=== PATIENT | female | born 1945 | race Caucasian/White ===

== ENCOUNTER 2020-06-24 08:01 | Outpatient (CLI) | payer MEDICARE, SELFPAY ==
--- NOTE | ~2020-06-24 | MM_ITS ---
EXAMINATION: MM screening [facility] BI w radha HISTORY: Screening mammogram TECHNIQUE: Craniocaudal and mediolateral oblique 3-D tomosynthesis images were obtained and synthetic 2-D images were generated. CAD analysis was submitted and interpreted. COMPARISON: Prior mammograms dating back to 05/09/2014 BREAST PARENCHYMAL COMPOSITION: There are scattered areas of fibroglandular density. FINDINGS: There is no evidence of suspicious mass, calcification, or architectural distortion to sugg est malignancy in either breast. There has been no suspicious interval change. IMPRESSION: 1. No mammographic evidence of malignancy. 2. Recommend routine screening mammography in one year. BI-RADS Category 1: Negative Reviewed, dictated and finalized at location A. 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
== END 2020-06-24 08:02 | disposition home or self-care (01) ==
LOC: ANHIMG 08:04
PROVIDERS: PCP Family Medicine Adolescent Medicine; Visit Provider Family Medicine Adolescent Medicine
DX: Z12.31 Encounter for screening mammogram for malignant neoplasm of breast (principal)
CPT/HCPCS: 77063; 77067

== ENCOUNTER 2021-11-03 08:48 | Outpatient (CLI) | payer MEDICARE, SELFPAY ==
--- NOTE | ~2021-11-03 | MM_ITS ---
EXAMINATION: MM screening [facility] BI w radha HISTORY: Screening TECHNIQUE: Craniocaudal and mediolateral oblique 3-D tomosynthesis images were obtained and synthetic 2-D images were generated. CAD analysis was submitted and interpreted. COMPARISON: Comparison to multiple prior studies sequentially, with oldest reviewed study dated 05/11. BREAST PARENCHYMAL COMPOSITION: There are scattered areas of fibroglandular density. FINDINGS: There is no evidence of suspicious mass, calcification, or architectural distortion to sugg est malignancy in either breast. There has been no suspicious interval change. IMPRESSION: 1. No mammographic evidence of malignancy. 2. Recommend routine screening mammography in one year. BI-RADS Category 1: Negative Reviewed, dictated and finalized at location A.
--- NOTE | ~2021-11-03 | DEXA_ITS ---
Bone Density Report Name: ARSENIO BUNN Age: 76 Sex: Female Ethnicity: White Date of : 1945 Indication: screening for osteoporosis; postmenopausal Referring Provider: WILBERT, CHRISTY Mcfarlane Study: Bone densitometry was performed. Exam Date: November 03, 2021 Accession number: [id number] Bone Density: Region BMD T-score Z-score Classification AP Spine(L1, L2, L3) 1.071 0.5 2.9 Normal Femoral Neck (Left) 0.673 -1.6 0.6 Osteopenia Total Hip (Left) 0.824 -1.0 0.9 Normal Femoral Neck (Right) 0.729 -1.1 1.1 Osteopenia Total Hip (Right) 0.832 -0.9 1.0 Normal Total Hip Mean 0.828 -1.0 1.0 Normal World Health Organization criteria for BMD impression classify patients as: Normal (T-score at or above -1.0), Osteopenia (T-score between -1.0 and -2.5), or Osteoporosis (T-score at or below -2.5). 10-year Fracture Risk: FRAX not reported because: Premenopausal woman Previous Exams: Region Exam Age BMD T-score BMD Change BMD Change Date g/cm2 vs Baseline vs Previous AP Spine (L1-L3) 11/03/2021 76 1.071 0.5 0.010 (1.0%) 0.010 (1.0%) 06/20/2018 72 1.060 0.4 Total Hip(Left) 11/03/2021 76 0.824 -1.0 -0.023 (-2.8%) -0.023 (-2.8%) 06/20/2018 72 0.847 -0.8 Total Hip(Right) 11/03/2021 76 0.832 -0.9 0.010 (1.3%) 0.010 (1.3%) 06/20/2018 72 0.822 -1.0 *Denotes significance at 95% confidence level, LSC for AP Spine = 0.022 g/cm2, LSC for Total Hip = 0.027 g/cm2 Clinical Information Provided by Patient: Patient maximum height was 66 Menopause Age: 52 Drinks caffeinated beverages Onset of menses at age 16 Premenopausal Number of pregnancies 2 Impression: The patient's bone mass is within expected range for age, gender and ethnicity. No significant bone loss was observed. Discussion: BONE DENSITY IS WITHIN EXPECTED LIMITS FOR AGE, SEX AND RACE. Bone density is within expected limits for age, sex and race at all sites measured. The patient should follow a healthful lifestyle (good nutrition with adequate calcium and vitamin D, and appropriate weight-bearing exercise). Follow-Up: Consider repeating this study in 2 to 3 years to reassess this patient's status, or sooner if there is some new clinical indication. Reported by: DARLENE on 11/03/2021 9:27:00 AM. Reviewed, dictated and finalized at location Maeve BENITEZ
== END 2021-11-03 08:49 | disposition home or self-care (01) ==
PROVIDERS: PCP Family Medicine Adolescent Medicine; Visit Provider Obstetrics & Gynecology
DX: Z12.31 Encounter for screening mammogram for malignant neoplasm of breast (principal); Z78.0 Asymptomatic menopausal state; M85.852 Other specified disorders of bone density and structure, left thigh; M85.851 Other specified disorders of bone density and structure, right thigh
CPT/HCPCS: 77063; 77067; 77080

== ENCOUNTER → 2022-02-17 10:32 | Outpatient (CLI) | payer MEDICARE, SELFPAY ==
--- NOTE | ~2022-02-17 | XR_ITS ---
XR chest 2V 02/17/2022 10:57 Indication: Dyspnea. Procedure: 2 view chest Comparison: 05/27/2010 and 05/29/2007 Findings: Heart size normal. No focal air space disease, pulmonary edema, pleural effusion or suspect ed pneumothorax. The there is a 6 mm nodular density right upper thorax. Impression: 1: Nodular density right upper thorax measuring 6 mm. Follow-up CT chest recommended. 2: No acute cardiopulmonary disease. Reviewed, dictated and finalized at location A. Impression: 1: Nodular density right upper thorax measuring 6 mm. Follow-up CT chest recomm ended. 2: No acute cardiopulmonary disease.
== END ==
PROVIDERS: PCP Family Medicine Adolescent Medicine; Visit Provider Family Medicine Adolescent Medicine
DX: R06.00 Dyspnea, unspecified (principal)
CPT/HCPCS: 71046

== ENCOUNTER → 2022-02-23 12:38 | Outpatient (CLI) | payer MEDICARE, SELFPAY ==
--- NOTE | ~2022-02-23 | CT_ITS ---
EXAMINATION:CT diagnostic chest wo con DATE: 02/23/2022 12:54 INDICATION: Right lung upper lobe nodule. TECHNIQUE: Computed tomography (CT) of the chest was performed without intravenous contrast. Automate d exposure control and iterative reconstruction technique were employed. The dose-length product (DLP ) was 237.87 mGy-cm. COMPARISON: Chest 2 views 02/17/2022 FINDINGS: There is mild emphysema. There is an 8 mm nodule in right upper lobe containing fat, consis tent with a hamartoma. There is mild atelectasis bilaterally. No pleural effusion. There are nodules in the thyroid measuring up to 11 mm, likely not clinically significant. The heart size is normal. Th ere are coronary artery calcifications. No pericardial effusion. There is moderate thoracic spondylos is. IMPRESSION: 1. 8 mm nodule in right lung upper lobe containing fat, consistent with a hamartoma. 2. Mild emphysema. Reviewed, dictated and finalized at location A. IMPRESSION: 1. 8 mm nodule in right lung upper lobe containing fat, consistent with a hamar iva. 2. Mild emphysema.
== END ==
PROVIDERS: PCP Family Medicine Adolescent Medicine; Visit Provider Family Medicine Adolescent Medicine
DX: R91.1 Solitary pulmonary nodule (principal); J43.9 Emphysema, unspecified
CPT/HCPCS: 71250

== ENCOUNTER 2022-03-12 13:29 | Outpatient (CLI) | payer MEDICARE, SELFPAY ==
--- NOTE | 2022-03-16 13:11 | WPDPFTINT ---
PFT Procedure Performed PFT Procedure Performed Flow Vol Loop Spirometry w/o Bronchodil PFT Interpretation Spirometry showed normal expiratory flow rates and a normal FEV1 to FVC ratio of 83%. The flow volume loop is unremarkable. No post bronchodilator study was carried out. Impression: Spirometry within normal range.
== END 2022-03-12 13:30 | disposition home or self-care (01) ==
PROVIDERS: PCP Family Medicine Adolescent Medicine; Visit Provider Family Medicine Adolescent Medicine
DX: J43.9 Emphysema, unspecified (principal)
CPT/HCPCS: 94375

== ENCOUNTER → 2022-09-01 09:03 | Outpatient (CLI) | payer MEDICARE, SELFPAY ==
--- NOTE | ~2022-09-01 | XR_ITS ---
Left ankle Technique: AP and lateral views were obtained. Clinical History: Pain Findings: No acute fracture or dislocation is seen. Osseous alignment is anatomic. Ankle mortise and other visualized joint spaces are preserved. Soft tissues are otherwise unremarkable. Impression: Unremarkable left ankle. Reviewed, dictated and finalized at [facility]. 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
--- NOTE | ~2022-09-01 | XR_ITS ---
AP and lateral views of the left tibia/fibula Clinical History: Injury Findings: No acute fracture or dislocation is seen. Osseous alignment is anatomic. Joint spaces are p reserved without significant erosive or degenerative change. Chondrocalcinosis of the menisci of the knee noted. Impression: No fracture or dislocation. Chondrocalcinosis of the menisci at the knee. Reviewed, dictated and finalized at location . 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 Chondrocalcinosis of the menisci at the knee.
== END ==
PROVIDERS: PCP Family Medicine Adolescent Medicine; Visit Provider Physician Assistant
DX: S89.92XA Unspecified injury of left lower leg, initial encounter (principal); X58.XXXA Exposure to other specified factors, initial encounter
CPT/HCPCS: 73590; 73600

== ENCOUNTER → 2022-12-23 09:30 | Outpatient (CLI) | payer MEDICARE, SELFPAY ==
--- NOTE | ~2022-12-23 | XR_ITS ---
EXAMINATION: XR chest 2V 12/23/2022 09:50 INDICATION: Dyspnea PROCEDURE: 2 view chest COMPARISON: Comparison to multiple prior studies sequentially, with oldest reviewed study dated 05/11. FINDINGS: The lungs are clear. The cardiomediastinal silhouette is within normal limits. There are no pleural effusions. There is no pneumothorax suspected. IMPRESSION: 1: NO ACUTE CARDIOPULMONARY DISEASE. Reviewed, dictated and finalized at location L.
== END ==
PROVIDERS: PCP Family Medicine Adolescent Medicine; Visit Provider Family Medicine Adolescent Medicine
DX: R06.00 Dyspnea, unspecified (principal); R07.9 Chest pain, unspecified
CPT/HCPCS: 71046

== ENCOUNTER 2022-12-24 08:10 | Outpatient (CLI) | payer MEDICARE, SELFPAY ==
--- NOTE | ~2022-12-24 | MM_ITS ---
EXAMINATION: MM screening [facility] BI w radha HISTORY: Screening mammogram TECHNIQUE: Craniocaudal and mediolateral oblique 3-D tomosynthesis images were obtained and synthetic 2-D images were generated. CAD analysis was submitted and interpreted. COMPARISON: November 03, 2021, June 24, 2020, June 22, 2019 bilateral screening mammogram examin ations BREAST PARENCHYMAL COMPOSITION: There are scattered areas of fibroglandular density. FINDINGS: There is no evidence of suspicious mass, calcification, or architectural distortion to sugg est malignancy in either breast. There has been no suspicious interval change. IMPRESSION: 1. No mammographic evidence of malignancy. 2. Recommend routine screening mammography in one year. BI-RADS Category 1: Negative Reviewed, dictated and finalized at location A.
== END 2022-12-24 08:11 | disposition home or self-care (01) ==
LOC: ANHIMG 08:12
PROVIDERS: PCP Family Medicine Adolescent Medicine; Visit Provider Obstetrics & Gynecology
DX: Z12.31 Encounter for screening mammogram for malignant neoplasm of breast (principal)
CPT/HCPCS: 77063; 77067

== ENCOUNTER 2023-02-21 08:31 | Outpatient (CLI) | payer MEDICARE, SELFPAY ==
--- NOTE | 2023-02-21 08:41 | ECHO_ITS ---
Patient Info Name: Edie Resendiz Age: 77 years : 1945 Gender: Female Ht: 66 in Wt: 134 lbs BSA: 1.68 m2 HR: 70 bpm BP: 146 / 86 mmHg Technical Quality: Good Exam Date: 02/21/2023 8:55 AM Exam Location: [facility] Pulmonary Patient Status: Outpatient Admit Date: 02/21/2023 Staff Ordering Physician: Zheng Wan MD Animal Nutrition Teacher: Karuna Weeks RDCS Attending Provider: Zheng Wan MD Referring Physician: Savage WAN; Exam Type: CA echo doppler color flow Study Info Indications R06.00 - Dyspnea, unspecified Complete two-dimensional, color flow and Doppler transthoracic echocardiogram is performed. Strain analysis performed. Summary 1. Complete two-dimensional, color flow and Doppler transthoracic echocardiogram is performed. 2. Left ventricular chamber dimension is normal. 3. Left ventricular systolic function is normal, estimated at 60-65%. 4. The left ventricular diastolic function is grade I diastolic dysfunction. 5. E/e' 7 is not elevated. 6. Global longitudinal strain is normal at -17.7%. 7. There is mild aortic valve sclerosis. 8. There is mild mitral valve regurgitation. 9. There is mild tricuspid valve regurgitation. 10. No pulmonary hypertension, estimated pulmonary arterial systolic pressure is 36 mmHg. Left Ventricle E/e' 7 is not elevated. Global longitudinal strain is normal at -17.7%. Left ventricular chamber dimension is normal. Left ventricular systolic function is normal, estimated at 60-65%. The left ventricular diastolic function is grade I diastolic dysfunction. Right Ventricle Right ventricular systolic function is normal and with normal TAPSE 2.4 cm. Right ventricular chamber dimension is normal. Left Atria Left atrial chamber dimension is normal. Right Atria Right atrial chamber dimension is normal. Aortic Valve The aortic valve is trileaflet. There is mild aortic valve sclerosis. There is no aortic valve stenosis. There is no aortic valve regurgitation. Pulmonic Valve There is no pulmonic regurgitation. Mitral Valve There is no mitral valve stenosis. There is mild mitral valve regurgitation. Tricuspid Valve There is mild tricuspid valve regurgitation. No pulmonary hypertension, estimated pulmonary arterial systolic pressure is 36 mmHg. Pericardium/Pleural There is no pericardial effusion. Inferior Vena Cava Normal inferior vena cava with >50% collapse upon inspiration consistent with normal right atrial pressure, 5 mmHg. Aorta The aortic root size at the sinus of Valsalva is normal. Left Ventricular Outflow Tract Name Value Normal LVOT 2D LVOT Diameter 1.9 cm LVOT Doppler LVOT Peak Gradient 3 mmHg LVOT Mean Gradient 2 mmHg LVOT VTI 20 cm LVOT VTI/AV VTI Ratio 0.7 LVOT Stroke Volume 54 ml LVOT CO 3.5 l/min LVOT CI 2.1 l/min/m2 Pulmonic Valve Name Value Normal
== END 2023-02-21 08:32 | disposition home or self-care (01) ==
PROVIDERS: PCP Family Medicine Adolescent Medicine; Visit Provider Family Medicine Adolescent Medicine
DX: R06.00 Dyspnea, unspecified (principal); R42 Dizziness and giddiness; I36.1 Nonrheumatic tricuspid (valve) insufficiency; I34.0 Nonrheumatic mitral (valve) insufficiency; I35.1 Nonrheumatic aortic (valve) insufficiency
CPT/HCPCS: 93306

== ENCOUNTER 2023-04-28 07:39 | Outpatient (CLI) | payer MEDICARE, SELFPAY ==
--- NOTE | ~2023-04-28 | MR_ITS ---
MRI of the cervical spine Clinical History: Neck pain Technique: Axial T2-weighted and gradient images, and sagittal T1-weighted, T2-weighted, and STIR rachell ges were acquired. Findings: There is no fracture or subluxation of the cervical spine. Vertebral bodies maintain normal height and alignment. No suspicious bone marrow signal abnormality seen. At C2-C3, there is no significant disc bulge or herniation. No central canal stenosis or cord maximiliano maciej. There is mild right neural foraminal narrowing with right facet arthropathy. Left neural forame n preserved. At C3-C4, there is no significant disc bulge or herniation. No central canal stenosis or cord maximiliano maciej. There is mild right neural foraminal narrowing with right facet arthropathy. Left neural forame n preserved. At C4-C5, there is no significant disc bulge or herniation. No central canal stenosis or cord maximiliano maciej. There is minimal bilateral facet arthropathy, with probable preservation of the bilateral neura l foramina. At C5-C6, there is moderate degenerative disc narrowing. There is minimal disc osteophyte compresses with possible minimal canal stenosis, but no lona cord compression. There is bilateral neural forami nal narrowing with bilateral facet arthropathy. At C6-C7, there is advanced degenerative disc narrowing, with small disc osteophyte complex. No centr al canal stenosis or lona cord compression. There is probable bilateral neural foraminal narrowing, with mild facet arthropathy. No abnormal signal seen in the spinal cord. Paravertebral soft tissues are unremarkable. Impression: Mild to [id number] degenerative spondylosis, as above. Reviewed, dictated and finalized at [facility]. Impression: Mild to [id number] degenerative spondylosis, as above.
--- NOTE | ~2023-04-28 | MR_ITS ---
MRI of the brain Clinical History: Headache Technique: Axial and sagittal T1-weighted images were acquired. These were followed by axial T2-weigh shakira, diffusion weighted, gradient, and FLAIR images. Findings: There is no acute infarct, intracranial hemorrhage or mass lesion identified. There are min imal chronic white matter changes in the periventricular white matter bilaterally. Ventricles and subarachnoid spaces are unremarkable. Orbits are unremarkable. Paranasal sinuses and m astoid air cells are clear. Major intracranial flow voids are intact. Sagittal midline structures are intact. IMPRESSION: Minimal chronic microvascular ischemic changes, otherwise unremarkable exam. Reviewed, dictated and finalized at location M.
== END 2023-04-28 07:40 | disposition home or self-care (01) ==
PROVIDERS: PCP Family Medicine Adolescent Medicine; Visit Provider Nurse Practitioner
DX: G44.209 Tension-type headache, unspecified, not intractable (principal); M47.892 Other spondylosis, cervical region
CPT/HCPCS: 70551; 72141

== ENCOUNTER 2023-07-27 09:22 | Outpatient (CLI) | payer MEDICARE, SELFPAY ==
--- NOTE | 2023-07-27 09:29 | ECG_ITS ---
Measurements Intervals [place] Rate: 83 P: 73 UT: 155 QRS: -14 QRSD: 92 T: 56 QT: 365 QTc: 431 Interpretive Statements SINUS RHYTHM POSSIBLE LEFT ATRIAL ENLARGEMENT INCOMPLETE RIGHT BUNDLE BRANCH BLOCK BASELINE ARTIFACT- I, II, III, AVR, AVL, AVF, V4-V6 BORDERLINE ECG NO PREVIOUS ECG AVAILABLE FOR COMPARISON Electronically Signed On 07-27-2023 9:36:42 UPSETTER SETTER UP by Amrit العلي D.O.
== END 2023-07-27 09:23 | disposition home or self-care (01) ==
LOC: ANHSURGERY 09:26
PROVIDERS: PCP Family Medicine Adolescent Medicine; Visit Provider Plastic Surgery
DX: E78.00 Pure hypercholesterolemia, unspecified (principal); Z01.818 Encounter for other preprocedural examination; I45.10 Unspecified right bundle-branch block
CPT/HCPCS: 93005

== ENCOUNTER 2023-08-03 01:43 | Day surgery (SDC) | payer MEDICARE, SELFPAY ==
[2023-07-26 13:34] VITALS: BMI 20.7
--- NOTE | 2023-07-26 13:44 | PC.NURSE ---
Report to the Outpatient Waiting Room, entrance under the green pavilion located off [facility], at time _0600_ on date _08/03/23_. Planned Procedure Time: _0730_. Time changes happen often and if your time is changed the preop area will call you the afternoon before. - You and your visitor will be asked to self-screen and do not enter if you have any COVID symptoms. - A mask is optional within the hospital at this time. Patients may have clear liquids (water, carbonated beverages, clear teas, apple juice) until 3 hours prior to surgery (0430 AM) with a maximum of 20 ounces. - No food from midnight until time of surgery Take the following medications with a SIP of water the morning of surgery: _LORAZEPAM IF NEEDED__ DO NOT STOP ANY OF YOUR OTHER PRESCRIPTION MEDICATIONS PRIOR TO SURGERY ?EXCEPT THE FOLLOWING Medications to discontinue per physician __MAY CONTINUE ASPIRIN PER DR. MARTINEZ Date to take last dose Please no make-up, nail arabic, hairspray, perfume, deodorant, or body powder the day of surgery. No jewelry (including any body piercings) or valuables the day of surgery, leave them at home. Please take a shower or bath the night before, or the morning of, surgery with an antibacterial soap. Wear comfortable, loose fitting clothing. - Jewelry must be removed prior to entering the operating room. Rings and piercings that are not removed may be cut off. - The hospital will not accept responsibility for valuables. - Please leave all valuables, including medications, at home the day of surgery. If you are going home after surgery, a licensed bulk truck driver must drive you home. - NO public transportation without another adult if you receive anesthesia. - We recommend that an adult stay with you for 24 hours following discharge. - We also recommend that you do not drive, make important decision, drink alcoholic beverages, or take any drugs that were not prescribed by your health care provider for at least 24 hours after your discharge time. Follow any additional instructions given to you from your surgeon. If you or anyone in your household have experienced Covid symptoms in the past week, please notify your surgeon or the nurse liaison at the phone number below for possible testing. Telephone instructions given to _PATIENT_and asked if any additional questions and then verbalized understanding. Patient advised to call surgeon office or pre surgery nurse liaison [phone] if any additional questions.
[2023-08-03] VITALS (8 sets, daily range): BP systolic 149–182; BP diastolic 70–91; PULSE 58–71; RESP 10–16; TEMP 36.1–36.9; O2SAT 99–100; BMI 19.8
[2023-08-03] MEDS: ACETAMINOPHEN 500 MG TABLET 1000 MG PO (06:55)
[2023-08-03] MEDS: LACTATED RINGERS 1,000 ML 30 ML IV CONT ×2 (06:58→09:29)
--- NOTE | 2023-08-03 07:06 | WPDHPUPDATE1 ---
History and Physical Update Update Date/Time: 08/03/23 07:06 History and Physical has been reviewed, including an updated exam of the patient. There are NO changes in the patient's condition. Risks, benefits, and alternatives have been discussed and questions answered. Patient agrees to proceed with procedure.
--- NOTE | 2023-08-03 07:14 | WPDANESEPPF ---
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 Patient Data Age: 78 Gender: F Height: 1.68 m Weight: 55.9 kg Last Vital Signs Temp 98.4 F 08/03/23 06:41 Pulse 65 08/03/23 06:41 Resp 16 08/03/23 06:41 BP 160/70 H 08/03/23 06:41 Pulse Ox 100 08/03/23 06:41 O2 Del Method Room Air 08/03/23 06:41 Allergies Allergy/AdvReac Type Severity Reaction Status Date / Time Latex, Natural Rubber AdvReac SKIN Verified 08/03/23 06:21 IRRITATION Home Medications Medication Instructions Recorded Confirmed Type aspirin 81 mg tablet,delayed 81 mg PO DAILY 10/14/21 08/03/23 History release (Adult Aspirin Regimen) cholecalciferol (vitamin D3) 25 25 mcg PO DAILY 02/16/22 08/03/23 History mcg (1,000 unit) capsule lorazepam 1 mg tablet 1 mg PO BID PRN anxiety #20 tabs 12/23/22 08/03/23 Rx pantoprazole 40 mg tablet,delayed 40 mg PO QAM #90 tabs 01/19/23 08/03/23 Rx release atorvastatin 40 mg tablet 40 mg PO DAILY #90 tabs 02/03/23 08/03/23 Rx lisinopril 10 mg tablet 10 mg PO DAILY #90 tabs 05/25/23 08/03/23 Rx trazodone 100 mg tablet 100 mg PO QHS PRN sleep #30 tabs 07/22/23 08/03/23 Rx calcium 600 mg capsule 1,200 mg PO DAILY 07/26/23 08/03/23 History Patient hx anesthesia problems: none Family hx anesthesia problems: none Results Review: All pre-operative results and documents have been reviewed as part of the pre-operative evaluation. [facility] Past Medical History Medical History Dyspnea Surgical History Surgical History History of right oophorectomy Family History Family History Father Cerebrovascular accident CHF (congestive heart failure) Mother CHF (congestive heart failure) Hypertension Hyperlipidemia Other Family history of arthritis Social History Social History (Updated 07/14/23 @ 10:51 by Tashia Moya) Years smoked: 40 Smoking status: Former smoker Tobacco type: cigarettes Second hand tobacco smoke exposure: No Smoking end date: 07/11/09 Additional smoking assessment comments: STATES SMOKING 1/2PK DAY THEN CUT DOWN TO 1 CIG FOR DAILY FOR YEARS Alcohol intake: current Drinks per week: 3 Substance use: never Substance use type: does not use Do You Feel Safe in your Home?: Yes Lack of Transportation: No Lack of Food: Never True Current Housing: I Have Housing Concerned About Future Housing: No Difficulty Paying Gas/Electric Bills: No Difficulty Paying for Meds: No Currently Unemployed: No Education: Bachelor's Degree Difficulty w/ Childcare or Family Care: No Living arrangements: alone Occupation/Education: retired Gender identity (if verbalized by the patient): Female Sexual Orientation (if Verbalized by the Patient): Straight or Heterosexual Spiritual care concerns: No Agree to blood products: Yes Anes - Eval Final PreProcedure Day of Procedure 08/03/23 07:14 Patient weight: normal Heart: regular rate and rhythm Lungs: clear to auscultation Airway: Mallampati scale class III Neurological: alert and oriented Last oral intake: >/= 8 hours ASA classification: III Emergent: no Anesthetic plan: proceed Anesthesia type and monitoring: general LMA and standard monitoring Results Review: All pre-operative results and documents have been reviewed as part of the pre-operative evaluation. Informed Consent: The patient's anesthetic plan and its attendant risks and benefits were discussed with the patient/family/POA. Questions were solicited and answers provided to the satisfaction of the patient/family/POA.
[2023-08-03] MEDS: ceFAZolin 2 GM/D5W 50 ML 2 GM/50 ML BAG IVPB (07:29)
[2023-08-03] MEDS: LIDO 1%/EPINEPHRINE 1:100,000 50 ML VIAL INFILTRATE (07:52)
--- NOTE | 2023-08-03 09:45 | P.OP_ITS ---
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 The patient consented to the surgery. She was taken to the operating room placed supine on the operating table. She was given general anesthesia with an LMA. The right upper extremity was prepped and draped usual fashion. A tourniquet was applied to the arm. The site was marked for the incisions and some local infiltration with 1% lidocaine with epinephrine was given. The extremity was exsanguinated with an Esmarch bandage and the tourniquet was inflated 250 mmHg the diagonal incision was made in palm and dissection revealed the pretendinous cord and the neurovascular bundles. The cord was dissected at both ends and removed. This made very little improvement in contractures which were primarily at the proximal interphalangeal joint. The volar midline incision was made and the skin flaps carefully elevated both sides. The neurovascular bundles were identified on both sides. The cord involve the large pretendinous cord with spiraling on the radial side. This continued out just beyond the distal interphalangeal joint. Lateral cords were also identified and removed. With complete removal of the Dupuytren's fasciitis we still had trouble fully extending the proximal interphalangeal joint. A transverse incision was made across the flexor tendon sheath at the proximal end of the A 4 malcom . Applying direct pressure to passively extend the proximal interphalangeal joint was successful in achieving 0? of flexion. Z-plasties were designed in elevated involving the distal interphalangeal joint and the proximal interphalangeal joint. This provided adequate skin for complete coverage as the flaps were sutured. Running or interrupted 4-0 over 5 0 nylon sutures accomplished that. The tourniquet was released at 80 minutes as we were closing wound. The fingers slowly pinked up . Appeared that no damage was done to the neurovascular bundles. The usual bandage with Xeroform and gauze and 2 in Bob wrap was applied. The ring and small fingers were placed in the wrap. She was discharged from the operating in room stable condition. A prescription for hydrocodone 5/325 five was E scribed.. Estimated Blood Loss 3 Tourniquet Time Total Tourniquet Time: 80 Drains No Packing No Pathology None sent Complications No immediate complications Condition Stable Disposition PACU
--- NOTE | 2023-08-03 11:01 | SUR.PHASEII ---
1040 PATIENT UNSTEADY ON HER FEET; WILL WAIT TO DISCHARGE HER HOME UNTIL SHE'S CAN STAND/WALK WITHOUT ASSISTANCE.
--- NOTE | 2023-08-03 11:20 | SUR.PHASEII ---
PATIENT STILL WOBBLY WHILE WALKING; REQUIRING A LITTLE ASSISTANCE; WILL KEEP HER LONGER UNTIL SHE IS STEADY AND CAN WALK WITHOUT ASSISTANCE.
--- NOTE | 2023-08-03 11:37 | SUR.PHASEII ---
1135 DR. MARTINEZ IN TO SEE PT.
--- NOTE | 2023-08-03 12:10 | SUR.PHASEII ---
1145 PATIENT STEADY ON HER FEET NOW.
== END 2023-08-03 12:00 | disposition home or self-care (01) ==
PROVIDERS: PCP Family Medicine Adolescent Medicine; Visit Provider Plastic Surgery
PROC: (CPT 26045; principal; 2023-08-03 07:30)
DX: M72.0 Palmar fascial fibromatosis [Dupuytren] (principal); Z79.82 Long term (current) use of aspirin; Z87.891 Personal history of nicotine dependence
CPT/HCPCS: 26123; 93005; A9270; J0690; J1100; J1596; J2371; J2405; J2704; J3010; J7120

== ENCOUNTER 2023-09-27 09:45 | Outpatient (RCR) | payer MEDICARE, SELFPAY ==
--- NOTE | 2023-08-25 10:19 | OTOPEVAL1 ---
Assessment and note entered by Des Solitario, RIA/Nancy, CHT Evaluation Information 08/25/23 Diagnosis s/p partial palmar fasciectomy Onset 08/03/23 Subjective Information Patient is right handed. She is reporting some residual stiffness, soreness, and numbness. She reports difficulties making a fist or feeling comfortable trying to carry her purse with that hand. Reported Pain Level Pain Score 0: Self Report Additional Pain Score Comments Reports 3/10 discomfort with ROM. No pain at rest. Assessment OT Clinical Summary Patient referred to OT s/p right hand partial fasciectomy ~3 weeks ago. She presents with residual stiffness, soreness, and weakness that limits return to functional gripping during ADLs. Skilled OT indicated to maximize functional flexibility and strength of the right hand via therapeutic exercise, manual therapy, modalities, as well as HEP instruction and progression. Plan of Care Interventions Therapeutic Exercise,Manual Therapy,Therapeutic Activities,Hot Pack/Cold Pack,Ultrasound,Paraffin OT Services Indicated Yes Treatment Frequency and 1-2x/week for 8 visits Duration These treatments will address the objective and functional deficits as defined above. The patient will be advanced safely and appropriately in order for the patient to progress towards his/her prior level of function. Additional exercises will be introduced and as well as a comprehensive home exercise program upon discharge, if needed, ?to ensure carryover of functional gains achieved in the clinic. This treatment plan has been reviewed and agreement upon by the patient.
--- NOTE | 2023-08-25 10:20 | OPREHPOC ---
Outpatient Therapy Plan of Care This is a Multidisciplinary Plan of Care that may contain components documented by all disciplines (PT, OT, and ST.) OT Problem 1 OT Problem #1 Knowledge Deficit OT Goal 1 Goal 1. Patient to be independent with instructed materials. Target Visit 8 OT Problem 2 OT Problem #2 Impaired Flexibility OT Goal 1 Goal 1. Patient to be able to make a fist with the right hand, as demonstrated by having no gap between the tip of the small finger and the palm. 2. Patient to be able to make a hook fist with the small finger, measuring <2 cm gap between the small finger tip and the DPC. Target Visit 8 OT Problem 3 OT Problem #3 Impaired Strength OT Goal 1 Goal 1. Improve functional vice president financial strength as demonstrated by being able to complete gross gripping HEP with yellow theraputty x5 minutes without pain. Target Visit 8
--- NOTE | 2023-09-27 10:43 | OTOPDC ---
Assessment and note entered by eDs Solitario, RIA/Nancy, CHT Discharge Summary 09/27/23 Diagnosis s/p partial palmar fasciectomy Onset 08/03/23 Subjective Information Patient reports progress since working with therapy. She reports improved comfort with making a fist and carrying objects. She reports improved function of the hand prior to surgery. She has been compliant with all instructed materials. Assessment OT Clinical Summary Patient referred to OT s/p right hand partial fasciectomy. She has made good progress with therapy with functional ROM and strength. She continues to have a 45 degree extension lag at the PIP joint, which has remained unchanged since the start of care. Functional flexion has improved to functional limits. She is currently independent with all materials. Recommending she continue her HEP to inhibit return of flexion contracture due to residual scar tissue and stiffness. D/C OT. Plan of Care OT Services Indicated No
== END 2023-09-27 11:54 | disposition home or self-care (01) ==
LOC: ANHOT 09:45
PROVIDERS: PCP Family Medicine Adolescent Medicine; Visit Provider Plastic Surgery
DX: M25.641 Stiffness of right hand, not elsewhere classified (principal)
CPT/HCPCS: 97018; 97035; 97110; 97140; 97165

== ENCOUNTER 2024-01-18 08:41 | Outpatient (CLI) | payer MEDICARE, SELFPAY ==
--- NOTE | ~2024-01-18 | MR_ITS ---
MRI of the brain Clinical History: Headache Technique: Axial and sagittal T1-weighted images were acquired. These were followed by axial T2-weigh shakira, diffusion weighted, gradient, and FLAIR images. COMPARISON: 04/28/2023 Findings: There is no acute infarct, intracranial hemorrhage, or mass lesion. There are mild chronic white matter changes in periventricular white matter bilaterally. Ventricles and subarachnoid spaces are unremarkable. Orbits are unremarkable. Paranasal sinuses and m astoid air cells are clear. Major intracranial flow voids are intact. Sagittal midline structures are intact. IMPRESSION: Mild chronic microvascular ischemic change, otherwise unremarkable exam. Reviewed, dictated and finalized at location M.
== END 2024-01-18 08:42 ==
LOC: MICIMG 08:42
PROVIDERS: PCP Family Medicine Adolescent Medicine; Visit Provider Nurse Practitioner
DX: R51.9 Headache, unspecified (principal)
CPT/HCPCS: 70551

== ENCOUNTER 2024-03-09 08:29 | Outpatient (CLI) | payer MEDICARE, SELFPAY ==
--- NOTE | ~2024-03-09 | DEXA_ITS ---
Bone Density Report Name: ARSENIO BUNN Age: 78 Sex: Female Ethnicity: White Date of : 1945 Indication: postmenopausal; screening for osteoporosis; Referring Provider: WILBERT, CHRISTY Mcfarlane Study: Bone densitometry was performed. Exam Date: March 09, 2024 Accession number: [id number] Bone Density: Region BMD T-score Z-score Classification AP Spine(L1, L2, L3) 1.087 0.6 3.2 Normal Femoral Neck (Left) 0.643 -1.9 0.4 Osteopenia Total Hip (Left) 0.764 -1.5 0.5 Osteopenia Femoral Neck (Right) 0.706 -1.3 1.0 Osteopenia Total Hip (Right) 0.764 -1.5 0.5 Osteopenia Total Hip Mean 0.764 -1.5 0.5 Osteopenia World Health Organization criteria for BMD impression classify patients as: Normal (T-score at or above -1.0), Osteopenia (T-score between -1.0 and -2.5), or Osteoporosis (T-score at or below -2.5). 10-year Fracture Risk(1): Major Osteoporotic Fracture 12% Hip Fracture 3.5% Reported Risk Factors: [place] (), Neck BMD=0.643, BMI=20.6 (1) FRAX(R) Version 3.08. Fracture probability calculated for an untreated patient. Fracture probability may be lower if the patient has received treatment. Previous Exams: Region Exam Age BMD T-score BMD Change BMD Change Date g/cm2 vs Baseline vs Previous AP Spine (L1-L3) 03/09/2024 78 1.087 0.6 0.027 (2.5%)# 0.017 (1.5%)# 11/03/2021 76 1.071 0.5 0.010 (1.0%) 0.010 (1.0%) 06/20/2018 72 1.060 0.4 Total Hip(Left) 03/09/2024 78 0.764 -1.5 -0.084 (-9.9%) -0.060 (-7.3%) 11/03/2021 76 0.824 -1.0 -0.023 (-2.8%) -0.023 (-2.8%) 06/20/2018 72 0.847 -0.8 Total Hip(Right) 03/09/2024 78 0.764 -1.5 -0.058 (-7.0%) -0.068 (-8.2%) 11/03/2021 76 0.832 -0.9 0.010 (1.3%) 0.010 (1.3%) 06/20/2018 72 0.822 -1.0 *Denotes significance at 95% confidence level, LSC for AP Spine = 0.022 g/cm2, LSC for Total Hip = 0.027 g/cm2 # Denotes dissimilar scan types or analysis methods Clinical Information Provided by Patient: Has used the following medications: Vitamin D, Calcium Patient maximum height was 66 Menopause Age: 52 No regular weight bearing exercise Drinks caffeinated beverages Onset of menses at age 16 Number of children 2 Impression: The patient has low bone mass, based on the Left Femoral Neck T-score. The patient has an estimated ten-year risk of hip fracture of 3.5% and an estimated ten-year risk of major fracture of 12%, based on
--- NOTE | ~2024-03-09 | MM_ITS ---
EXAMINATION: MM screening [facility] BI w radha HISTORY: Screening TECHNIQUE: Craniocaudal and mediolateral oblique 3-D tomosynthesis images were obtained and synthetic 2-D images were generated. CAD analysis was submitted and interpreted. COMPARISON: Comparison to multiple prior studies sequentially, with oldest reviewed study dated 02/2017. BREAST PARENCHYMAL COMPOSITION: There are scattered areas of fibroglandular density. FINDINGS: There is no evidence of suspicious mass, calcification, or architectural distortion to sugg est malignancy in either breast. There has been no suspicious interval change. IMPRESSION: 1. No mammographic evidence of malignancy. 2. Recommend routine screening mammography in one year. BI-RADS Category 1: Negative Reviewed, dictated and finalized at location B.
== END 2024-03-09 08:30 | disposition home or self-care (01) ==
PROVIDERS: PCP Family Medicine Adolescent Medicine; Visit Provider Obstetrics & Gynecology
DX: Z12.31 Encounter for screening mammogram for malignant neoplasm of breast (principal); M85.89 Other specified disorders of bone density and structure, multiple sites; Z78.0 Asymptomatic menopausal state
CPT/HCPCS: 77063; 77067; 77080

== ENCOUNTER 2025-01-24 12:26 | Outpatient (CLI) | payer MEDICARE, SELFPAY ==
--- OUTSIDE RECORDS SUMMARY | 2025-01-24 12:31 | XMS_ITS | Referral Summary ---
Author Organization [facility] Address [address] [place] [phone] Care Team Providers Care Microfilm Operator Name Role Phone Zheng Wan MD Primary Care Prov ider Encounters Date Type Department Care Team Description 12/10/2024 11:00 AM CDT Office Visit [facility] Neurology [address] [place] [address] [address] [place] [address] Marley Naylor NP Chronic migraine with aura without status migrainosus, not intractable (Primary Dx); Chronic neck pain; Muscle twitching from Last 3 Months Allergies No known active allergies Medications aspirin 81 mg enteric coated tablet 1 tablet (81 mg total) daily Active calcium carbonate (OS-GADIEL) 1,250 MG (500 mg of elemental calcium) tablet 500 mg 2 (two) times a day Active atorvastatin (LIPITOR) 40 mg tablet Take 1 tablet (40 mg total) by mouth daily 02/20/[address] (PROTONIX) 40 mg EC tablet Take 1 tablet (40 mg total) by mouth 2 (two) times a day 02/19/2021 Active cholecalciferol , vitamin D3, (VITAMIN D3 ORAL) Take by mouth Active traZODone (DESYREL) 100 mg tablet Take 1 tablet (100 mg total) by mouth nightly as needed for sleep 01/21/2022 Active escitalopram (LEXAPRO) 10 mg tablet Take 1 tablet (10 mg total) by mouth daily 06/08/2023 Active chlorhexidine (PERIDEX) 0.12 % solution 11/05/2023 Active propranolol LA (INDERAL LA) 80 mg 24 hr capsule Take 1 capsule (80 mg total) by mouth daily 03/03/2024 Active sertraline (ZOLOFT) 100 mg tablet Take 1 tablet (100 mg total) by mouth daily 03/05/2024 Active cyclobenzaprine (FLEXERIL) 5 mg tablet Take 1 tablet (5 mg total) by mouth nightly as needed for muscle spasms 30 tablet 5 06/13/2024 Active atogepant (Qulipta) 60 mg tablet Take 60 mg by mouth daily 30 tablet 11 12/10/2024 12/11/19 26 Active ubrogepant (Ubrelvy) 100 mg tablet Take 1 tablet (100 mg total) by mouth once as needed for migraine May repeat dose once in 2 hours if no relief. Do not exceed 2 doses in 24 hours. 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 She is in need of renewal of medication at this time. I have renewed her nortriptyline 25 mg HS. She will follow-up in neurology clinic in a year for reassessment. Assessment & Plan (02/29/2020 10:06 AM CDT): Patient has history of muscle contraction type headaches with good symptomatic relief with nortriptyline 25 mg HS. She has no tolerability issues with medication, and she is pleased with her response to date. I have renewed her nortriptyline 25 mg HS as scheduled, and I will plan on seeing her back in 1 year. Social History Tobacco Use Types Packs/Day Years Used Date Smoking Tobacco: Former Smokeless Tobacco: Never Tobacco Cessation:Counseling Given: Not Answered AUDIT-C Answer Date Recorded Q1: How often do you have a drink containing alc ohol? Monthly or less 02/09/2022 Q2: How many drinks containi ng alcohol do you have on a typical day when you are drinking? 1 or 2 02/09/2022 Q3: How often do you have si x or more drinks on one occasion? Never 02/09/2022 Comments No Sex and Gender Information Value Date Recorded Sex Assigned at Not on file Legal Sex Female 3:01 AM SPEECH LANGUAGE PATHOLOGIST PRN Gender Identity Not on file Sexual Orientation Not on file Last Filed Vital Signs Vital Sign Reading Time Taken Comments Blood Pressure 138/84 12/10/2024 11:03 AM CDT Pulse 69 12/10/2024 11:03 AM CDT Temperature 36.7 C (98.1 F) 08/12/2022 10:59 AM SPEECH LANGUAGE PATHOLOGIST PRN Respiratory Rate 19 06/13/2024 3:39 PM SPEECH LANGUAGE PATHOLOGIST PRN Oxygen Saturation 99% 12/10/2024 11:03 AM CDT Inhaled Oxygen Concentration - - Weight 56.7 kg (125 lb) 12/10/2024 11:03 AM CDT Height 167.6 cm (5' 5.98) 12/10/2024 11:03 AM C DT Body Mass Index 20.19 12/10/2024 11:03 AM CDT Plan of Treatment Not on file Insurance [facility] MEDICARE Care Teams Microfilm Operator Relationship Specialty Start Date End Date Zheng Wan MD [address] [place] [address] PCP - General Family Medicine 02/06/20
--- OUTSIDE RECORDS SUMMARY | 2025-01-24 12:31 | XMS_ITS | Encounter Summary ---
Author Organization [facility] Healthcare Address [address] [place] [address] Care Team Providers Care Continuous Dryout Operator Helper Name Role Phone Zheng Wan MD Primary Care Prov ider Encounter Details Date Type Department Care Team (Late st Contact Info) Description 03/09/2024 Orders Only [facility] Health Information Management [address] [place] [phone] Héctor Amador MD [address] [facility] [address] [address] Social History Tobacco Use Types Packs/Day Years Used Date Smoking Tobacco: Former Smokeless Tobacco: Never AUDIT-C Answer Date Recorded Q1: How often [...] on file Legal Sex Female 3:01 AM SALES AND MARKETING ADMINISTRATOR Gender Identity Not on file Sexual Orientation Not on file documented as of this encounter Plan of Treatment Not on file documented as of this encounter Procedures Procedure Name Priority Date/Time Associated Diagnosis Comments SCAN - RADIOLOGY/IMAGING 03/09/2024 documented in this encounter Results * SCAN - RADIOLOGY/IMAGING (03/09/2024) Anatomical Region Laterality Modality Other Héctor Amador MD Edited Result - Final documented in this encounter Visit Diagnoses Not on filedocumented in this encounter Care Teams Continuous Dryout Operator Helper Relationship Specialty Start Date End Date Zheng Wan MD [address] [place] [address] PCP - General Family Medicine 02/06/20 documented as of this encounter
--- OUTSIDE RECORDS SUMMARY | 2025-01-24 12:31 | XMS_ITS | Encounter Summary ---
Author Organization [facility] Address [address] [place] [address] Care Team Providers Care Enrichment Director Name Role Phone Unavailable Primary Care Provider Unavailabl e Encounter Details Date Type Department Care Team (Late st Contact Info) Description 06/10/2021 Lab Requisition [facility] [address] [place] [place], [place] [phone] Andrei Rdz MD [address] [place] [address] Social History Tobacco Use Types Packs/Day Years Used Date Smoking Tobacco: Never Assessed Comments Unknown Sex and Gender Information Value Date Recorded Sex Assigned at Not on file Legal Sex Female 2:56 PM FACILITIES MAINTENANCE ENGINEER Gender Identity Not on file Sexual Orientation Not on file documented as of this encounter Plan of Treatment Not on file documented as of this encounter Procedures Procedure Name Priority Date/Time Associated Diagnosis Comments DERMATOPATHOLOGY Routine 06/09/2021 3:33 AM FACILITIES MAINTENANCE ENGINEER documented in this encounter Results * DERMATOPATHOLOGY (06/09/2021 3:33 AM FACILITIES MAINTENANCE ENGINEER) Case Report Dermatopathology Report Case: [id number] Authorizing Provider: Andrei Rdz MD Collected: 06/09/2021 03:33 AM Ordering Location: [facility] Received: 06/10/2021 06:10 AM Pathologist: Deondre Finch MD Specimen: Skin, right lower leg 1 5:23 PM FACILITIES MAINTENANCE ENGINEER DERMATOPATHOLOGY LABORATORY Final Diagnosis Specimen A. SKIN, right lower leg: SQUAMOUS CELL CARCINOMA, KERATOACANTHOMA TYPE (C44.722) 5:23 PM FACILITIES MAINTENANCE ENGINEER DERMATOPATHOLOGY LABORATORY at 1723 FACILITIES MAINTENANCE ENGINEER Clinical History SCC. Path# [id number] 5:23 PM [facility] DERMATOPATHOLOGY [facility]ORATORY Gross Description Specimen A: Received is one formalin filled container labeled with the patient's name and designated right lower leg. The specimen consists of a shave biopsy measuring [id number]. Jar 0+. 5:23 PM [facility] DERMATOPATHOLOGY LABORATORY Microscopic Description Specimen A. SKIN, right lower leg: Sections show an endo exophytic crateriform lesion with a keratotic plug, formed by confluent follicle-like structures with relatively large keratinocytes and neutrophilic abscesses. 5:23 PM [facility] DERMATOPATHOLOGY LABORATORY Disclaimer An external and internal positive and negative controls are appropriate for the histochemical, immunohistochemical and immunofluorescence stain(s) in this case (if any), except where stated explicitly. The performance characteristics of the stain(s) cited in this report were developed and its performance characteristic determined by the Dermatopathology Laboratory at [facility], directed by Dr. Delia Finch. These tests need not be, and therefore are not, approved by the [place] Food and Drug Administration. The tests are used for clinical purposes. Billing Codes Specimen Charges Stain Charges 02320 1 5:23 PM [facility] DERMATOPATHOLOGY [facility]ORATORY Embedded Images 5:23 PM [facility] DERMATOPATHOLOGY [facility]OR[facility]ORY Pathology/Cytolo gy TISSUE SPECIMEN FROM SKIN / Unknown 06/09/2021 3:33 AM FACILITIES MAINTENANCE ENGINEER 06/10/2021 6:10 AM FACILITIES MAINTENANCE ENGINEER us Andrei Rdz MD LAB - PATHOLOGY/CYTOLOGY ORDER JAIME Final Result DERMATOPATHOLOGY LABORATORY [facility] - Department of Dermatology [address], [address] [phone] documented in this encounter Visit Diagnoses Not on filedocumented in this encounter
--- OUTSIDE RECORDS SUMMARY | 2025-01-24 12:31 | XMS_ITS | Clinical Summary ---
Author Organization [facility] Address [address] [place] [address] Care Team Providers Care Acoustic Engineer Name Role Phone Unavailable Primary Care Provider Unavailabl e Source Comments [facility] [employer],non-owned Affiliates and Associated Physician Practices is amultiple site organization consisting of ambulatory clinics and hospital sitesin [place], [place], [place] and [place]. This disclosure is being madepursuant to the Care Everywhere program and may not contain all information available regarding this patient. Last updated 18.[facility] [employer] Social History Tobacco Use Types Packs/Day Years Used Date Smoking Tobacco: Never Assessed Comments Unknown Sex and Gender Information Value Date Recorded Sex Assigned at Not on file Legal Sex Female 2:56 PM GAS SINGER Gender Identity Not on file Sexual Orientation Not on file Plan of Treatment Health Maintenance Due Date Last Done Comments BONE DENSITY TESTING 1945 DTAP/TDAP/TD VACCINES (1 - Tdap) 1964 PNEUMOCOCCAL VACCINE 50+ (1 of 1 - PCV) 1995 ZOSTER VACCINE (1 of 2) 1995 Respiratory Syncytial Virus (RSV) Vaccine Pt: or over 60 yrs (1 - 1-dose 75+ series) 2020 COVID-19 VACCINE ( - 2023-2 5 season) 2024 DEPRESSION SCREENING 07/11/2024 INFLUENZA VACCINE (#1) 2025 HEPATITIS B VACCINE Aged Out No longe r eligible based on patient's age to complete this topic HIB VACCINE Aged Out No longer eligi ble based on patient's age to complete this topic HPV VACCINE Aged Out No longer eligi ble based on patient's age to complete this topic MENINGOCOCCAL (Group B) VACC INE SHARED DECISION-MAKING Aged Out No longer eligibl e based on patient's age to complete this topic MENINGOCOCCAL GROUPS A/C/Y/W VACCINE Aged Out No longer eligible b ased on patient's age to complete this topic Insurance [facility] [place] [address]
--- OUTSIDE RECORDS SUMMARY | 2025-01-24 12:31 | XMS_ITS | Encounter Summary ---
Author Organization [facility] Care Team Providers Care Geospatial Imagery Intelligence Analyst Name Role Phone Raven Park MD Primary Care Provide r Zheng Wan MD Primary Care Prov ider Encounter Details Date Type Department Care Team (Latest Contact Info) Description 05/11/2016 Orders Only [facility] ProviderPilo MD [address] [place] [phone] Social History Tobacco Use Types Packs/Day Years Used Date Smoking Tobacco: Never Assessed Comments Unknown Sex and Gender Information Value Date Recorded Sex Assigned at Not on file Legal Sex Female 3:01 AM KNITTED GARMENT FINISHER Gender Identity Not on file Sexual Orientation Not on file documented as of this encounter Plan of Treatment Not on file documented as of this encounter Procedures Procedure Name Priority Date/Time Associated Diagnosis Comments SCAN - LABS 05/11/2016 12:00 AM CDT documented in this encounter Results * SCAN - LABS (05/11/2016 12:00 AM CDT) Narrative 05/11/2016 12:00 AM CDT Ordered by an unspecified provider. Historical Provider Final Res ult documented in this encounter Visit Diagnoses Not on filedocumented in this encounter Care Teams Geospatial Imagery Intelligence Analyst Relationship Specialty Start Date End Date Raven Park MD [address] [place] [address] PCP - General 04/18/13 02/05/20 Zheng Wan MD [address] [place] [address] PCP - General Family Medicine 02/06/20 documented as of this encounter
--- OUTSIDE RECORDS SUMMARY | 2025-01-24 12:31 | XMS_ITS | Clinical Summary ---
Author Organization [facility] Address [address] [place] [address] Care Team Providers Care Nurse Healthcare Manager Name Role Phone Zheng Wan MD Primary Care Prov ider Allergies No known active allergies Medications aspirin [...] on seeing her back in 1 year. Encounters Date Type Department Care Team Description 12/10/2024 11:00 AM CDT Office Visit [facility] Neurology [address] [place] [phone] Marley Naylor NP Chronic migraine with aura without status migrainosus, not intractable (Primary Dx); Chronic neck pain; Muscle twitching from Last 3 Months Surgical History Surgery Date Site/Laterality Comments OVARY SURGERY SKIN CANCER EXCISION OOPHORECTOMY Right Medical History Medical History Date Comments Frequent headaches Glaucoma High cholesterol Family History Medical History Relation Name Comments Stroke Brother Heart disease Father No Known Problems Mother Breast cancer Mother's Sister Macular degeneration Sister Skin cancer Sister Relation Name Status Comments Brother Alive Father Mother Mother's Sister Sister Alive Social History Tobacco Use Types Packs/Day Years [...] on file Legal Sex Female 3:01 AM AUGER OPERATOR Gender Identity Not on file Sexual Orientation Not on file Obstetrics History Para Term AB IAB SAB Ectopic Multiple Livin g Live Births 2 2 Date Outcome GA Total Labor Labor/2nd/3rd Weight Sex Type Anes PTL Beti A1 A5 Name Clin Para Para Comments Last Filed Vital Signs Vital Sign Reading Time Taken Comments Blood Pressure 138/84 12/10/2024 11:03 AM CDT Pulse 69 12/10/2024 11:03 AM CDT Temperature 36.7 C (98.1 F) 08/12/2022 10:59 AM AUGER OPERATOR Respiratory Rate 19 06/13/2024 3:39 PM AUGER OPERATOR Oxygen Saturation 99% 12/10/2024 11:03 AM CDT Inhaled Oxygen Concentration - - Weight 56.7 kg (125 lb) 12/10/2024 11:03 AM CDT Height 167.6 cm (5' 5.98) 12/10/2024 11:03 AM C DT Body Mass Index 20.19 12/10/2024 11:03 AM CDT Plan of Treatment Health Maintenance Due Date Last Done Comments Depression Screening 1945 Fall Risk Assessment 1945 Hepatitis C Screening 1945 Osteoporosis Screening-Bone Density Scan 1945 DTaP/Tdap/Td Vaccine (1 - Tdap) 1956 Hepatitis B Screening 1963 Pneumococcal vaccine 65+ (1 of 1 - PCV) 1995 Influenza Vaccine (Season Ended) 2025 Well Visit 65+ 06/20/2025 06/20/2024, 12/0 11/2022, 06/07/2022, Additional history exists Zoster Vaccine Completed 05/23/2019, 03/05/2019 Insurance [employer] MEDICARE Care Teams Nurse Healthcare Manager Relationship Specialty Start Date End Date Zheng Wan MD [address] [place] [address] PCP - General Family Medicine 02/06/20
--- NOTE | 2025-01-24 12:39 | ECG_ITS ---
Test Date: 2025-01-24 12:56:05 Measurements Intervals [place] Rate: 60 P: 9 [place]: 175 QRS: -21 QRSD: 94 T: 31 QT: 421 QTc: 421 Interpretive Statements SINUS RHYTHM NONSPECIFIC ST- T WAVE CHANGES No previous ECG available for comparison Electronically Signed On 01-24-2025 14:49:42 CDT by Manav Hancock M.D.
== END 2025-01-24 12:27 | disposition home or self-care (01) ==
LOC: ANHCARD 12:29
PROVIDERS: PCP Family Medicine Adolescent Medicine; Visit Provider Anesthesiology
DX: R94.31 Abnormal electrocardiogram [ECG] [EKG] (principal); I10 Essential (primary) hypertension
CPT/HCPCS: 93005

== ENCOUNTER 2025-02-07 08:57 | Day surgery (SDC) | payer MEDICARE, SELFPAY ==
--- NOTE | 2025-02-07 06:54 | PM.HPGS ---
History of Present Illness History of Present Illness Chief complaint: Dupuytren's Contracture Right Small Finger Narrative: Patient seen and examined in pre-operative holding area. No interval change in medical history or symptoms. Patient recalls previous discussion of benefits and alternatives to procedure. Continues to desire to proceed with right small finger fasciectomy. Reviewed procedure, post-op expectations and risks including but not limited to bleeding, infection, injury to tendon/nerve/vessel, decreased hand function, stiffness, RSD, no change or worsening of symptoms, incomplete release, recurrence. I discussed the possible use of assistants and their participation in the case. Patient stated understanding and signed the consent form wishing to proceed. Review of Systems Review of Systems: All systems reviewed & are unremarkable except as noted in HPI and below PMFSH Past Medical History Medical History Dyspnea Surgical History Surgical History History of right oophorectomy Family History Family History Father Cerebrovascular accident CHF (congestive heart failure) Mother CHF (congestive heart failure) Hypertension Hyperlipidemia Other Family history of arthritis Social History Social History (Updated 07/14/23 @ 10:51 by Tashia Moya) Years smoked: 40 Smoking status: Former smoker Tobacco type: cigarettes Second hand tobacco smoke exposure: No Smoking end date: 07/11/09 Additional smoking assessment comments: STATES SMOKING 1/2PK DAY THEN CUT DOWN TO 1 CIG FOR DAILY FOR YEARS Alcohol intake: current Drinks per week: 3 Substance use: never Substance use type: does not use Do You Feel Safe in your Home?: Yes Lack of Transportation: No Lack of Food: Never True Current Housing: I Have Housing Concerned About Future Housing: No Difficulty Paying Gas/Electric Bills: No Difficulty Paying for Meds: No Currently Unemployed: No Education: Bachelor's Degree Difficulty w/ Childcare or Family Care: No Living arrangements: alone Occupation/Education: retired Gender identity (if verbalized by the patient): Female Sexual Orientation (if Verbalized by the Patient): Straight or Heterosexual Spiritual care concerns: No Agree to blood products: Yes Meds Home Medications and Allergies Home Medications ?Medication ?Instructions ?Recorded ?Confirmed ?Type aspirin 81 mg tablet,delayed 81 mg PO DAILY 10/14/21 02/07/25 History release (Adult Aspirin Regimen) cholecalciferol (vitamin D3) 25 25 mcg PO DAILY 02/16/22 02/07/25 History mcg (1,000 unit) capsule calcium 600 mg capsule 1,200 mg PO DAILY 07/26/23 02/07/25 History atogepant 10 mg tablet (Qulipta) 10 mg PO DAILY 04/06/24 02/07/25 History sertraline 100 mg tablet 100 mg PO DAILY #30 tabs 06/11/24 02/07/25 Rx trazodone 100 mg tablet 100 mg PO QHS PRN sleep #30 tabs 09/09/24 02/07/25 Rx atorvastatin 40 mg tablet 40 mg PO DAILY #90 tabs 11/20/24 02/07/25 Rx acyclovir 400 mg tablet 400 mg PO TID PRN unknown 12/18/24 01/23/25 History pantoprazole 40 mg tablet,delayed 40 mg PO BID #180 tabs 12/18/24 02/07/25 Rx release propranolol 80 mg capsule,24 80 mg PO DAILY #90 caps 12/31/24 02/07/25 Rx hr,extended release Allergies Allergy/AdvReac Type Severity Reaction Status Date / Time Latex, Natural Rubber AdvReac SKIN Verified 02/07/25 09:44 IRRITATION Exam Narrative: unchanged Assessment and Plan Assessment and plan (1) Dupuytren's contracture of both hands: Code(s): 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
--- NOTE | 2025-02-07 06:55 | W.PM.PROC2 ---
Procedure Note - Detailed Date of Procedure 02/07/25 Pre-op Diagnosis Dupuytren's Contracture Right Small Finger Post-op Diagnosis Same Procedure Performed right small finger fasciectomy Surgeon Manuela Magdaleno MD Masonry Contractor Administrator ray du pa-c Anesthesia MAC Description of Procedure INFORMED CONSENT: The patient was seen and examined and marked in the pre-op area.? The patient signed the consent form. PROCEDURE IN DETAIL:The patient taken back to OR on the stretcher in supine position. Time out performed with anesthesia, surgeon and staff agreeing on patient's name site and surgery to be performed SCDs were placed on the lower extremities and inflated. A tourniquet was placed on {right} upper extremity and antibiotics given IV After anesthesia administered sedation I injected {4}cc 1%lido and 0.5% marcaine plain at the operative site The?{right upper extremity}?was prepped and draped in sterile fashion the??{right upper extremity} was? exsanguinated with Esmarch bandage and tourniquet inflated to 250mmHg I proceeded with making a longitudinal incision in the palm over the central cord and then going obliquely across flexion creases of the MP and PIP joint through skin and dermis with 15 blade scalpel. Skin flaps were elevated. I circumferentially dissected around the origin of the cord in the palm proximally and transected the cord. I then proceeded with anterograde dissection of the cord until I was able to achieve full extension of the MP and PIP joint of the right small finger. The neurovascular bundles were identified and protected throughout the procedure. I irrigated with normal saline. The tourniquet was let down noting finger warm and well perfused with good cap refill. Closure with 4-0 chromic suture. A dressing of xeroform , 4x4, margoth, and an ulnar gutter splint was applied for patient safety, security, and comfort and secured with an geraldine bandage. The patient was then awaken from anesthesia and transferred to the recovery room in stable condition.? Complications - none EBL- 0cc Disposition - home in stable condition ray du pa-c was essential for positioning, retraction, closure and dressing placement [facility] Billing Surgery - Charge Forward: Surgery Billing ([id number] for ray)
--- OUTSIDE RECORDS SUMMARY | 2025-02-07 09:47 | XMS_ITS | Encounter Summary ---
Author Organization [facility] Facility Care Team Providers Care Remote Sensing Specialist Name Role Phone Raven Park MD Primary Care Provide r Zheng Wan MD Primary Care Prov ider Encounter Details Date Type Department Care Team (Latest Contact Info) Description 05/11/2016 Orders Only [facility] CLINCONV ProviderPilo MD [address] [place] [address] Social History Tobacco Use Types Packs/Day Years Used Date Smoking Tobacco: Never Assessed Comments Unknown Sex and Gender Information Value Date Recorded Sex Assigned at Not on file Legal Sex Female 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
--- OUTSIDE RECORDS SUMMARY | 2025-02-07 09:47 | XMS_ITS | Encounter Summary ---
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
--- OUTSIDE RECORDS SUMMARY | 2025-02-07 09:47 | XMS_ITS | Encounter Summary ---
Author Organization [facility] Address [address] [place] [address] Care Team Providers Care Vehicle Refinisher Name Role Phone Unavailable Primary Care Provider Unavailabl e Encounter Details Date Type Department Care Team (Late st Contact Info) Description 06/10/2021 Lab Requisition [facility] DermPath Lab [address] [facility], [place] [id number] Andrei Rdz MD [address] [place] [address] Social History Tobacco Use Types Packs/Day Years Used Date Smoking Tobacco: Never Assessed Comments Unknown Sex and Gender Information Value Date Recorded Sex Assigned at Not on file Legal Sex Female 2:56 PM MEDICAL ACCOUNTING CLERK Gender Identity Not on file Sexual Orientation Not on file documented as of this encounter Plan of Treatment Not on file documented as of this encounter Procedures Procedure Name Priority Date/Time Associated Diagnosis Comments DERMATOPATHOLOGY Routine 06/09/2021 3:33 AM MEDICAL ACCOUNTING CLERK documented in this encounter Results * DERMATOPATHOLOGY (06/09/2021 3:33 AM MEDICAL ACCOUNTING CLERK) Case Report Dermatopathology Report Case: [id number] Authorizing Provider: Andrei Rdz MD Collected: 06/09/2021 03:33 AM Ordering Location: [facility] DermPath Lab Received: 06/10/2021 06:10 AM Pathologist: Deondre Finch MD Specimen: Skin, right lower leg 1 5:23 PM MEDICAL ACCOUNTING CLERK DERMATOPATHOLOGY LABORATORY Final Diagnosis Specimen A. 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 Path# [id number] 5:23 PM [facility] DERMATOPATHOLOGY LABORATORY Gross Description Specimen A: Received is one formalin filled container labeled with the patient's name and designated right lower leg. The specimen consists of a shave biopsy measuring [id number]. Jar 0+. 5:23 PM [facility] DERMATOPATHOLOGY LABORATORY Microscopic Description Specimen A. SKIN, right lower leg: Sections show an endo exophytic crateriform lesion with a keratotic plug, formed by confluent follicle-like structures with relatively large keratinocytes and neutrophilic abscesses. 5:23 PM [facility] DERMATOPATHOLOGY LABORATORY Disclaimer An external and internal positive and negative controls are appropriate for the histochemical, immunohistochemical and immunofluorescence stain(s) in this case (if any), except where stated explicitly. The performance characteristics of the stain(s) cited in this report were developed and its performance characteristic determined by the Dermatopathology Laboratory at [facility], directed by Dr. Delia Finch. These tests need not be, and therefore are not, approved by the [place] Food and Drug Administration. The tests are used for clinical purposes. Billing Codes Specimen Charges Stain Charges 15472 1 5:23 PM [facility] DERMATOPATHOLOGY LABORATORY Embedded Images 5:23 PM [facility] DERMATOPATHOLOGY LABORATORY Pathology/Cytolo gy TISSUE SPECIMEN FROM SKIN / Unknown 06/09/2021 3:33 AM MEDICAL ACCOUNTING CLERK 06/10/2021 6:10 AM MEDICAL ACCOUNTING CLERK us Andrei Rdz MD LAB - PATHOLOGY/CYTOLOGY ORDER JAIME Final Result DERMATOPATHOLOGY LABORATORY [facility] - Department of Dermatology [address], [address] [phone] documented in this encounter Visit Diagnoses Not on filedocumented in this encounter
--- OUTSIDE RECORDS SUMMARY | 2025-02-07 09:47 | XMS_ITS | Clinical Summary ---
Author Organization [facility] Address [address] [facility] [place] [address] Care Team Providers Care Mechanical Apprentice Name Role Phone Unavailable Primary Care Provider Unavailabl e Source Comments [facility] [employer],non-owned Affiliates and Associated Physician Practices is amultiple site organization consisting of ambulatory clinics and hospital sitesin [place], [place], [place] and [place]. This disclosure is being madepursuant to the Care Everywhere program and may not contain all information available regarding this patient. Last updated 18.[facility] [employer] Social History Tobacco Use Types Packs/Day Years Used Date Smoking Tobacco: Never Assessed Comments Unknown Sex and Gender Information Value Date Recorded Sex Assigned at Not on file Legal Sex Female 2:56 PM WALL CLEANER Gender Identity Not on file Sexual Orientation [...] age to complete this topic Insurance [facility] MANAGED MEDICARE ADV
--- OUTSIDE RECORDS SUMMARY | 2025-02-07 09:48 | XMS_ITS | Clinical Summary ---
Author Organization [facility] Address [address] [place] [address] Care Team Providers Care Oncology Radiation Physician Name Role Phone Zheng Wan MD Primary [...] Description 12/10/2024 11:00 AM CDT Office Visit [facility] Neurology [address] [place] [phone] Marley Naylor NP Chronic migraine with [...] on file Legal Sex Female 3:01 AM ACCT EXEC Gender Identity Not on file Sexual Orientation [...] 36.7 C (98.1 F) 08/12/2022 10:59 AM ACCT EXEC Respiratory Rate 19 06/13/2024 3:39 PM ACCT EXEC Oxygen Saturation 99% 12/10/2024 11:03 AM CDT [...] of 1 - PCV) 1995 Influenza Vaccine (#1) 2025 Well Visit 65+ 06/20/2025 06/20/2024, 12/0 11/2022, 06/07/2022, Additional history exists Zoster Vaccine Completed 05/23/2019, 03/05/2019 Insurance [employer] MEDICARE Care Teams Oncology Radiation Physician Relationship Specialty Start Date End Date Zheng Wan MD [address] [place] [address] PCP - General Family Medicine 02/06/20
--- OUTSIDE RECORDS SUMMARY | 2025-02-07 09:48 | XMS_ITS | Referral Summary ---
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 Gender Identity Not on file Sexual Orientation Not on file Last Filed Vital Signs Vital Sign Reading Time Taken Comments Blood Pressure 138/84 12/10/2024 11:03 AM CDT Pulse 69 12/10/2024 11:03 AM CDT Temperature 36.7 C (98.1 F) 08/12/2022 10:59 AM GEOTHERMAL SHEET METAL WORKER Respiratory Rate 19 06/13/2024 3:39 PM GEOTHERMAL SHEET METAL WORKER Oxygen Saturation 99% 12/10/2024 11:03 AM CDT Inhaled Oxygen Concentration - - Weight 56.7 kg (125 lb) 12/10/2024 11:03 AM CDT Height 167.6 cm (5' 5.98) 12/10/2024 11:03 AM C DT Body Mass Index 20.19 12/10/2024 11:03 AM CDT Plan of Treatment Not on file Insurance [facility] MEDICARE Care Teams Bed Maker Relationship Specialty Start Date End Date Zheng Wan MD [address] [place] [address] PCP - General Family Medicine 02/06/20
[2025-02-07 09:53] VITALS: BP 176/91; PULSE 56; RESP 20; TEMP 36.9; O2SAT 100; BMI 19.8
[2025-02-07] MEDS: ACETAMINOPHEN 500 MG TABLET 1000 MG PO (10:12)
--- NOTE | 2025-02-07 10:30 | P.PNAN_ITS ---
Anes - Initial Pre Proc Eval Procedure: Operation Date: 02/07/25 11:00 Proposed Procedures p Fasciectomy Right Small Finger - Manuela Magdaleno MD Date/Time: 02/07/25 10:30 Surgeon: Manuela Magdaleno MD Pre Op Diagnosis: Dupuytren's Contracture Right Small Finger Patient Data Age: 79 Gender: F Height: 1.68 m Weight: 55.7 kg Last Vital Signs Temp 98.4 F 02/07/25 09:53 Pulse 56 L 02/07/25 09:53 Resp 20 02/07/25 09:53 BP 176/91 H 02/07/25 09:53 Pulse Ox 100 02/07/25 09:53 O2 Del Method Room Air 02/07/25 09:53 Allergies Allergy/AdvReac Type Severity Reaction Status Date / Time Latex, Natural Rubber AdvReac SKIN Verified 02/07/25 09:44 IRRITATION Home Medications ?Medication ?Instructions ?Recorded ?Confirmed ?Type aspirin 81 mg tablet,delayed 81 mg PO DAILY 10/14/21 02/07/25 History release (Adult Aspirin Regimen) cholecalciferol (vitamin D3) 25 25 mcg PO DAILY 02/16/22 02/07/25 History mcg (1,000 unit) capsule calcium 600 mg capsule 1,200 mg PO DAILY 07/26/23 02/07/25 History atogepant 10 mg tablet (Qulipta) 10 mg PO DAILY 04/06/24 02/07/25 History sertraline 100 mg tablet 100 mg PO DAILY #30 tabs 06/11/24 02/07/25 Rx trazodone 100 mg tablet 100 mg PO QHS PRN sleep #30 tabs 09/09/24 02/07/25 Rx atorvastatin 40 mg tablet 40 mg PO DAILY #90 tabs 11/20/24 02/07/25 Rx acyclovir 400 mg tablet 400 mg PO TID PRN unknown 12/18/24 01/23/25 History pantoprazole 40 mg tablet,delayed 40 mg PO BID #180 tabs 12/18/24 02/07/25 Rx release propranolol 80 mg capsule,24 80 mg PO DAILY #90 caps 12/31/24 02/07/25 Rx hr,extended release Patient hx anesthesia problems: none Family hx anesthesia problems: none Results Review: All pre-operative results and documents have been reviewed as part of the pre- operative evaluation. REPLACED BY [facility] Past Medical History Medical History Dyspnea Surgical History Surgical History History of right oophorectomy Family History Family History Father Cerebrovascular accident CHF (congestive heart failure) Mother CHF (congestive heart failure) Hypertension Hyperlipidemia Other Family history of arthritis Social History Social History (Updated 07/14/23 @ 10:51 by Tashia Moya) Years smoked: 40 Smoking status: Former smoker Tobacco type: cigarettes Second hand tobacco smoke exposure: No Smoking end date: 07/11/09 Additional smoking assessment comments: STATES SMOKING 1/2PK DAY THEN CUT DOWN TO 1 CIG FOR DAILY FOR YEARS Alcohol intake: current Drinks per week: 3 Substance use: never Substance use type: does not use Do You Feel Safe in your Home?: Yes Lack of Transportation: No Lack of Food: Never True Current Housing: I Have Housing Concerned About Future Housing: No Difficulty Paying Gas/Electric Bills: No Difficulty Paying for Meds: No Currently Unemployed: No Education: Bachelor's Degree Difficulty w/ Childcare or Family Care: No Living arrangements: alone Occupation/Education: retired Gender identity (if verbalized by the patient): Female Sexual Orientation (if Verbalized by the Patient): Straight or Heterosexual Spiritual care concerns: No Agree to blood products: Yes Anes - Eval Final PreProcedure Day of Procedure 02/07/25 10:30 Heart: regular rate and rhythm Lungs: clear to auscultation Airway: Mallampati scale class II Neurological: alert and oriented Last oral intake: >/= 8 hours ASA classification: II Anesthetic plan: proceed Anesthesia type and monitoring: monitored anesthesia care Results Review: All pre-operative results and documents have been reviewed as part of the pre- operative evaluation. Informed Consent: The patient's anesthetic plan and its attendant risks and benefits were discussed with the patient/family/POA. Questions were solicited and answers provided to the satisfaction of the patient/family/POA.
[2025-02-07] MEDS: ceFAZolin SODIUM 2 GM/20 ML SW SYRINGE IV PUSH (11:19)
[2025-02-07] MEDS: LACTATED RINGERS 1,000 ML 30 ML IV CONT (11:37)
[2025-02-07] MEDS: LIDOCAINE 1% LOCAL INJ 20 ML VIAL 4 ML INFILTRATE (11:38)
[2025-02-07] MEDS: BUPivacaine HCL 0.5% 10 ML AMP INFILTRATE (11:39)
[2025-02-07 12:08] VITALS: BP 143/86; PULSE 56; RESP 18; O2SAT 99
--- NOTE | 2025-02-07 12:12 | WPDANESPN ---
Anes - Prog Note Post-Op Date/Time: 02/07/25 12:12 Vital Signs: Last Vital Signs Temp 98.4 F 02/07/25 09:53 Pulse 56 L 02/07/25 09:53 Resp 20 02/07/25 09:53 BP 176/91 H 02/07/25 09:53 Pulse Ox 100 02/07/25 09:53 O2 Del Method Room Air 02/07/25 09:53 Pain Score (VAS): 0 Patient Feedback: Patient satisfied with anesthetic care.
[2025-02-07 12:39] VITALS: BP 151/82; PULSE 50; RESP 16; O2SAT 100
== END 2025-02-07 12:46 | disposition home or self-care (01) ==
LOC: ASC 09:31
PROVIDERS: PCP Family Medicine Adolescent Medicine; Visit Provider Plastic Surgery
PROC: (CPT 26045; principal; 2025-02-07 11:00)
DX: M72.0 Palmar fascial fibromatosis [Dupuytren] (principal)
CPT/HCPCS: 26123

== ENCOUNTER 2025-02-07 15:38 | Outpatient (NON) | payer MEDICARE, SELFPAY ==
--- NOTE | 2025-02-07 | S_PTH ---
PATIENT: Edie Resendiz LOC: ANAB #:[id number] AGE/SX: 79/F ROOM: RE02/07/[address]: Manuela Magdaleno MD : 1945 BED: DIS: 02/07/2025 SPEC #: [id number] RECD: 02/08/25 07:09 STATUS: KIESHA REVicky #: [id number] DAINA: 02/07/25 00:[address]: Manuela Magdaleno DEPT: [facility] Surgical RECD BY: Anna Blair ENTERED: 02/08/25 07:10 SP TYPE: Surgical OTHR DR: Zheng Wan MD Tissues: A - Soft Tissue Procedures: Hematoxylin and Eosin Stain Gross and Microscopic Level 3
--- OUTSIDE RECORDS SUMMARY | 2025-02-07 15:41 | XMS_ITS | Encounter Summary ---
Author Organization [facility] Healthcare Address [address] [place] [address] Care Team Providers Care Scrap Baler Name Role Phone Zheng Wan MD Primary Care Prov ider Encounter Details Date Type Department Care Team (Late st Contact Info) Description 03/09/2024 Orders Only [facility] Health Information Management [address] [place] [address] Héctor Amador MD [address] [facility] [address] [address] Social History Tobacco Use Types [...] on file Legal Sex Female 3:01 AM LEARNING SPECIALIST Gender Identity Not on file Sexual Orientation [...] on filedocumented in this encounter Care Teams Scrap Baler Relationship Specialty Start Date End Date Zheng Wan MD [address] [place] [address] PCP - General Family Medicine 02/06/20 documented as of this encounter
--- OUTSIDE RECORDS SUMMARY | 2025-02-07 15:41 | XMS_ITS | Encounter Summary ---
Author Organization [facility] Facility Care Team Providers Care Licensed Funeral Director Name Role Phone Raven Park MD Primary Care Provide r Zheng Wan MD Primary Care Prov ider Encounter Details Date Type Department Care Team (Latest Contact Info) Description 05/11/2016 Orders Only [facility] CLINCON[facility] ProviderPilo MD [address] [place] [address] Social History Tobacco Use Types Packs/Day Years Used Date Smoking Tobacco: Never Assessed Comments Unknown Sex and Gender Information Value Date Recorded Sex Assigned at Not on file Legal Sex Female 3:01 AM BILLING REPRESENTATIVE Gender Identity Not on file Sexual [...] on filedocumented in this encounter Care Teams Licensed Funeral Director Relationship Specialty Start Date End Date Raven Park MD [address] [place] [address] PCP - General 04/18/13 02/05/20 Zheng Wan MD [address] [place] [address] PCP - General Family Medicine 02/06/20 documented as of this encounter
--- OUTSIDE RECORDS SUMMARY | 2025-02-07 15:41 | XMS_ITS | Referral Summary ---
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 Gender Identity Not on file Sexual Orientation Not on file Last Filed Vital Signs Vital Sign Reading Time Taken Comments Blood Pressure 138/84 12/10/2024 11:03 AM CDT Pulse 69 12/10/2024 11:03 AM CDT Temperature 36.7 C (98.1 F) 08/12/2022 10:59 AM LAUNDROMAT WORKER Respiratory Rate 19 06/13/2024 3:39 PM LAUNDROMAT WORKER Oxygen Saturation 99% 12/10/2024 11:03 AM CDT Inhaled Oxygen Concentration - - Weight 56.7 kg (125 lb) 12/10/2024 11:03 AM CDT Height 167.6 cm (5' 5.98) 12/10/2024 11:03 AM C DT Body Mass Index 20.19 12/10/2024 11:03 AM CDT Plan of Treatment Not on file Insurance [facility] MEDICARE Care Teams Administrative Support Assistant Relationship Specialty Start Date End Date Zheng Wan MD [address] [place] [address] PCP - General Family Medicine 02/06/20
--- OUTSIDE RECORDS SUMMARY | 2025-02-07 15:41 | XMS_ITS | Encounter Summary ---
Author Organization [facility] Address [address] [facility] [place] [address] Care Team Providers Care Manager Culinary Name Role Phone Unavailable Primary Care Provider Unavailabl e Encounter Details Date Type Department Care Team (Late st Contact Info) Description 06/10/2021 Lab Requisition [facility] DermPath Lab [address] [facility] [place] [phone] Andrei Rdz MD [address] [place] [address] Social History Tobacco Use Types Packs/Day Years Used Date Smoking Tobacco: Never Assessed Comments Unknown Sex and Gender Information Value Date Recorded Sex Assigned at Not on file Legal Sex Female 2:56 PM DISTRICT MANAGER Gender Identity Not on file Sexual Orientation Not on file documented as of this encounter Plan of Treatment Not on file documented as of this encounter Procedures Procedure Name Priority Date/Time Associated Diagnosis Comments DERMATOPATHOLOGY Routine 06/09/2021 3:33 AM DISTRICT MANAGER documented in this encounter Results * DERMATOPATHOLOGY (06/09/2021 3:33 AM DISTRICT MANAGER) Case Report Dermatopathology Report Case: [id number] Authorizing Provider: Andrei Rdz MD Collected: 06/09/2021 03:33 AM Ordering Location: [facility] DermPath Lab Received: 06/10/2021 06:10 AM Pathologist: Deondre Finch MD Specimen: Skin, right lower leg 1 5:23 PM DISTRICT MANAGER DERMATOPATHOLOGY LABORATORY Final Diagnosis Specimen A. SKIN, right lower leg: SQUAMOUS CELL CARCINOMA, KERATOACANTHOMA TYPE (C44.722) 5:23 PM DISTRICT MANAGER DERMATOPATHOLOGY LABORATORY at [address] DISTRICT MANAGER Clinical History SCC. Path# [id number] 5:23 PM [facility] DERMATOPATHOLOGY LABORATORY Gross Description Specimen A: Received is one formalin filled container labeled with the patient's name and designated right lower leg. The specimen consists of a shave biopsy measuring [id number]. Jar 0+. 5:23 PM [facility] DERMATOPATHOLOGY LABORATORY Microscopic Description Specimen A. SKIN, right lower leg: Sections show an endo exophytic crateriform lesion with a keratotic plug, formed by confluent follicle-like structures with relatively large keratinocytes and neutrophilic abscesses. 5:23 PM [facility] DERMATOPATHOLOGY LABORATORY Disclaimer An external and internal positive and negative controls are appropriate for the histochemical, immunohistochemical and immunofluorescence stain(s) in this case (if any), except where stated explicitly. The performance characteristics of the stain(s) cited in this report were developed and its performance characteristic determined by the Dermatopathology Laboratory at [facility], directed by Dr. Delia Finch. These tests need not be, and therefore are not, approved by the [place] Food and Drug Administration. The tests are used for clinical purposes. Billing Codes Specimen Charges Stain Charges 34796 1 5:23 PM [facility] DERMATOPATHOLOGY LABORATORY Embedded Images 5:23 PM [facility] DERMATOPATHOLOGY LABORATORY Pathology/Cytolo gy TISSUE SPECIMEN FROM SKIN / Unknown 06/09/2021 3:33 AM DISTRICT MANAGER 06/10/2021 6:10 AM DISTRICT MANAGER us Andrei Rdz MD LAB - PATHOLOGY/CYTOLOGY ORDER JAIME Final Result DERMATOPATHOLOGY LABORATORY [facility] - Department of Dermatology [address] [phone] documented in this encounter Visit Diagnoses Not on filedocumented in this encounter
--- OUTSIDE RECORDS SUMMARY | 2025-02-07 15:41 | XMS_ITS | Clinical Summary ---
Author Organization [facility] Address [address] [place] [address] Care Team Providers Care Student Finance Specialist Name Role Phone Zheng Wan MD Primary [...] Description 12/10/2024 11:00 AM CDT Office Visit [facility] Neurology [address] [place] [phone] Marley Naylor NP Chronic migraine with [...] on file Legal Sex Female 3:01 AM CLAIM SPECIALIST Gender Identity Not on file Sexual [...] 36.7 C (98.1 F) 08/12/2022 10:59 AM CLAIM SPECIALIST Respiratory Rate 19 06/13/2024 3:39 PM CLAIM SPECIALIST Oxygen Saturation 99% 12/10/2024 11:03 AM CDT [...] 05/23/2019, 03/05/2019 Insurance [employer] MEDICARE Care Teams Student Finance Specialist Relationship Specialty Start Date End Date Zheng Wan MD [address] [place] [address] PCP - General Family Medicine 02/06/20
--- OUTSIDE RECORDS SUMMARY | 2025-02-07 15:41 | XMS_ITS | Clinical Summary ---
Author Organization [facility] Address [address] [place] [address] Care Team Providers Care Community Development Coordinator Name Role Phone Unavailable Primary Care Provider Unavailabl e Source Comments [facility] [email or web address],non-owned Affiliates and Associated Physician Practices is amultiple site organization consisting of ambulatory clinics and hospital sitesin [place], [place], [place] and [place]. This disclosure is being madepursuant to the Care Everywhere program and may not contain all information available regarding this patient. Last updated 18.[facility] [email or web address] Social History Tobacco Use Types Packs/Day Years Used Date Smoking Tobacco: Never Assessed Comments Unknown Sex and Gender Information Value Date Recorded Sex Assigned at Not on file Legal Sex Female 2:56 PM ORTHOPHOTO TECH/DRAFTSMAN Gender Identity Not on file Sexual Orientation [...] age to complete this topic Insurance [facility] MANAGED MEDICARE ADV
== END 2025-02-07 15:39 | disposition home or self-care (01) ==
LOC: ANHLAB 15:39
PROVIDERS: PCP Family Medicine Adolescent Medicine; Visit Provider Plastic Surgery
DX: M72.0 Palmar fascial fibromatosis [Dupuytren] (principal)
CPT/HCPCS: 88304

== ENCOUNTER 2025-04-08 10:08 | Outpatient (CLI) | payer MEDICARE, SELFPAY ==
--- NOTE | ~2025-04-08 | MM_ITS ---
EXAMINATION: MM screening [facility] BI w radha HISTORY: Screening TECHNIQUE: Craniocaudal and mediolateral oblique 3-D tomosynthesis images were obtained and synthetic 2-D images were generated. CAD analysis was submitted and interpreted. COMPARISON: Comparison to multiple prior studies sequentially, with oldest reviewed study dated 06/20/2018. BREAST PARENCHYMAL COMPOSITION: Not dense: There are scattered areas of fibroglandular density. FINDINGS: There is no evidence of suspicious mass, calcification, or architectural distortion to suggest malignancy in either breast. There has been no suspicious interval change. IMPRESSION: 1. No mammographic evidence of malignancy. 2. Recommend routine screening mammography in one year. BI-RADS Category 1: Negative Reviewed, dictated and finalized at location B.
--- OUTSIDE RECORDS SUMMARY | 2025-04-08 10:47 | XMS_ITS | Clinical Summary ---
Author Organization [facility] Address [address] [facility] [place] [address] Care Team Providers Care Account Support Specialist Name Role Phone Unavailable Primary Care Provider Unavailabl e Source Comments [facility],non-owned Affiliates and Associated Physician Practices is amultiple site organization consisting of ambulatory clinics and hospital sitesin [place], [place]. This disclosure is being madepursuant to the Care Everywhere program and may not contain all information available regarding this patient. Last updated 18.[facility] Social History Tobacco Use Types Packs/Day Years Used Date Smoking Tobacco: Never Assessed Comments Unknown Sex and Gender Information Value Date Recorded Sex Assigned at Not on file Legal Sex Female 2:56 PM STORAGE RECEIPT POSTER Gender Identity Not on file Sexual Orientation Not on file Plan of Treatment Health Maintenance Due Date Last Done Comments BONE DENSITY TESTING 1945 DTAP/TDAP/TD VACCINES (1 - Tdap) 1964 PNEUMOCOCCAL VACCINE 50+ (1 of 1 - PCV) 1995 ZOSTER VACCINE (1 of 2) 1995 Respiratory Syncytial Virus (RSV) Vaccine Pt: or over 60 yrs (1 - 1-dose 75+ series) 2020 DEPRESSION SCREENING 07/11/2024 MEDICARE AWV CALENDAR YEAR 2024 COVID-19 VACCINE (1 - 2023-2 5 season) 2025 INFLUENZA VACCINE (#1) 2025 HEPATITIS B VACCINE [...] patient's age to complete this topic Insurance [employer] MANAGED MEDICARE ADV [employer] MEDICARE ADV SELF PAY NO INSURANCE Member Subscriber Plan / Payer (Ef fective for All Dates) Name:Arsenio Resendiz Member ID:Not on file Relation to Subscriber:Not on file Name:ARSENIO RESENDIZ Subscriber ID:Not on file Address: [address] [place] [address] Payer ID:Not on file Group ID:Not on file Type:Self Pay Address: [place], [place]
--- OUTSIDE RECORDS SUMMARY | 2025-04-08 10:47 | XMS_ITS | Encounter Summary ---
Author Organization [facility] Address [address] [facility] [place] [address] Care Team Providers Care Thread Machine Operator Name Role Phone Unavailable Primary Care Provider Unavailabl e Encounter Details Date Type Department Care Team (Late st Contact Info) Description 06/10/2021 Lab Requisition [facility] DermPath Lab [address] [facility] [place] [phone] Andrei Rdz MD [address] [place], [place] [phone] Social History Tobacco Use Types Packs/Day Years Used Date Smoking Tobacco: Never Assessed Comments Unknown Sex and Gender Information Value Date Recorded Sex Assigned at Not on file Legal Sex Female 2:56 PM PRESS TENDER Gender Identity Not on file Sexual Orientation Not on file documented as of this encounter Plan of Treatment Not on file documented as of this encounter Procedures Procedure Name Priority Date/Time Associated Diagnosis Comments DERMATOPATHOLOGY Routine 06/09/2021 3:33 AM PRESS TENDER documented in this encounter Results * DERMATOPATHOLOGY (06/09/2021 3:33 AM PRESS TENDER) Case Report Dermatopathology Report Case: [id number] Authorizing Provider: Andrei Rdz MD Collected: 06/09/2021 03:33 AM Ordering Location: [facility] DermPath Lab Received: 06/10/2021 06:10 AM Pathologist: Deondre Finch MD Specimen: Skin, right lower leg 5:23 PM PRESS TENDER DERMATOPATHOLOGY LABORATORY Final Diagnosis Specimen A. SKIN, right lower leg: SQUAMOUS CELL CARCINOMA, KERATOACANTHOMA TYPE (C44.722) 5:23 PM PRESS TENDER DERMATOPATHOLOGY LABORATORY at [address] PRESS TENDER Clinical History SCC. Path# [id number] 5:23 PM [facility] DERMATOPATHOLOGY LABORATORY Gross Description Specimen A: Received is one formalin filled container labeled with the patient's name and designated right lower leg. The specimen consists of a shave biopsy measuring [id number]. Jar 0+. 5:23 PM [facility] DERMATOPATHOLOGY LABORATORY Microscopic Description Specimen A. SKIN, right lower leg: Sections show an endo exophytic crateriform lesion with a keratotic plug, formed by confluent follicle-like structures with relatively large keratinocytes and neutrophilic abscesses. 5:23 PM [facility] DERMATOPATHOLOGY LABORATORY Disclaimer An external and internal positive and negative controls are appropriate for the histochemical, immunohistochemical and immunofluorescence stain(s) in this case (if any), except where stated explicitly. The performance characteristics of the stain(s) cited in this report were developed and its performance characteristic determined by the Dermatopathology Laboratory at [facility], directed by Dr. eDlia Finch. These tests need not be, and therefore are not, approved by the [place] Food and Drug Administration. The tests are used for clinical purposes. Billing Codes Specimen Charges Stain Charges 28638 1 5:23 PM [facility] DERMATOPATHOLOGY LABORATORY Embedded Images 5:23 PM [facility] DERMATOPATHOLOGY LABORATORY Pathology/Cytolo gy TISSUE SPECIMEN FROM SKIN / Unknown 06/09/2021 3:33 AM PRESS TENDER 06/10/2021 6:10 AM PRESS TENDER Andrei Rdz MD LAB - PATHOLOGY/CYTOLOGY ORDER JAIME Final Result DERMATOPATHOLOGY LABORATORY [facility] - Department of Dermatology [address] [place] [address], [facility] [phone] documented in this encounter Visit Diagnoses Not on filedocumented in this encounter
--- OUTSIDE RECORDS SUMMARY | 2025-04-08 10:47 | XMS_ITS | Encounter Summary ---
Author Organization [facility] Care Team Providers Care Parcel Contractor Name Role Phone Raven Park MD Primary Care Provide r Zheng Wan MD Primary Care Prov ider Encounter Details Date Type Department Care Team (Latest Contact Info) Description 05/11/2016 Orders Only [facility] CLINCONV ProviderPilo MD [address] [place] [id number] Social History Tobacco Use Types Packs/Day Years Used Date Smoking Tobacco: Never Assessed Comments Unknown Sex and Gender Information Value Date Recorded Sex Assigned at Not on file Legal Sex Female 3:01 AM CORPORATE DEVELOPMENT OFFICER Gender Identity Not on file Sexual Orientation [...] on filedocumented in this encounter Care Teams Parcel Contractor Relationship Specialty Start Date End Date Raven Park MD [address] [place] [address] PCP - General 04/18/13 02/05/20 Zheng Wan MD [address] [address] PCP - General Family Medicine 02/06/20 documented as of this encounter
--- OUTSIDE RECORDS SUMMARY | 2025-04-08 10:47 | XMS_ITS | Clinical Summary ---
Author Organization [facility] [place] [facility] Address [address] [place] [address] Care Team Providers Care Mail Carrier Name Role Phone Zheng Wan MD Primary [...] on seeing her back in 1 year. Surgical History Surgery Date Site/Laterality Comments OVARY [...] on file Legal Sex Female 3:01 AM INDUSTRIAL SERVICER Gender Identity Not on file Sexual Orientation [...] 36.7 C (98.1 F) 08/12/2022 10:59 AM INDUSTRIAL SERVICER Respiratory Rate 19 06/13/2024 3:39 PM INDUSTRIAL SERVICER Oxygen Saturation 99% 12/10/2024 11:03 AM CDT [...] 05/23/2019, 03/05/2019 Insurance [employer] MEDICARE Care Teams Mail Carrier Relationship Specialty Start Date End Date Zheng Wan MD PCP - General Family Medicine 02/06/20
== END 2025-04-08 10:09 | disposition home or self-care (01) ==
LOC: ANHFOHIMG 10:09
PROVIDERS: PCP Family Medicine Adolescent Medicine; Visit Provider Obstetrics & Gynecology
DX: Z12.31 Encounter for screening mammogram for malignant neoplasm of breast (principal)
CPT/HCPCS: 77063; 77067